=== PATIENT | female | born 1935 | race Caucasian/White ===

== ENCOUNTER 2017-05-28 12:07 | Inpatient (IN) | payer MEDICARE, OTHER ==
[~2017-05-28] VITALS: Ht 152.4 cm; Wt 55.2 kg
[2017-05-28 12:09] VITALS: BP 167/73; PULSE 88; RESP 20; TEMP 98.9; O2SAT 100
--- NOTE | 2017-05-28 12:44 | PD ---
Physical Exam Time Seen by Provider: 12:40 Narrative 82yo F seen yesterday at [facility] in [place] called this morning with positive blood cultures of gram negatives Bacillus Escherichia coli. She hasn't feeling well, with vomiting, fever 100.6. Was given IV antibx in the hospital. Was given nitrofurantoin for UTI, which she had it filled but not has not started them. Patient seen in triage. VS reviewed. Awaiting bed placement. See next providers note for final patient disposition. Data Data Last Documented VS Vital Signs Date Time Temp Pulse Resp B/P (MAP) Pulse Ox O2 Delivery O2 Flow Rate FiO2 05/28/17 12:09 98.9 88 20 167/73 (104) 100 Room Air MDM Supervised Visit with MARTY: Claudia June May 28, 2017 12:44
[2017-05-28 12:57] VITALS: BP 124/57; PULSE 87; RESP 17; O2SAT 99
[2017-05-28] MEDS ORDERED: PIPERACIL-TAZO 4.5 GM PREMIX 100 ML IV STA (13:04)
[2017-05-28] MEDS ORDERED: bp med PO (13:16)
[2017-05-28] MEDS ORDERED: LIPI10TA PO (13:16)
[2017-05-28] MEDS ORDERED: AMAR4TAB PO ×2 (13:16)
[2017-05-28] MEDS ORDERED: METF850T PO (13:16)
[2017-05-28] MEDS ORDERED: SITA1TAB2 PO (13:16)
[2017-05-28 13:53] LABS: AUTOMATED NEUTROPHIL # 3.7 TH/MM3 (1.8-7.7); BASOPHIL % 0.6 % (0.0-2.0); EOSINOPHIL % 0.7 % (0.0-4.0); HEMATOCRIT 32.5 % (35.0-46.0); HEMOGLOBIN 11.1 GM/DL (11.6-15.3); LYMPHOCYTE # 1.4 TH/MM3 (1.0-4.8); MEAN CELL VOLUME 88.1 FL (80.0-100.0); MEAN CORPUSCULAR HEMOGLOBIN 30.2 PG (27.0-34.0); MEAN CORPUSCULAR HGB CONC 34.3 % (32.0-36.0); MEAN PLATELET VOLUME 9.6 FL (7.0-11.0); MONO % 9.1 % (0.0-8.0); MONOCYTE # 0.5 TH/MM3 (0-0.9); NEUT % 65.6 % (16.0-70.0); PLATELET COUNT 194 TH/MM3 (150-450); RED BLOOD COUNT 3.69 MIL/MM3 (4.00-5.30); RED CELL DISTRIBUTION WIDTH 13.8 % (11.6-17.2); WHITE BLOOD COUNT 5.7 TH/MM3 (4.0-11.0)
--- NOTE | 2017-05-28 13:53 | RADRPT ---
EXAM DATE/TIME: 05/28/2017 13:27 [facility] COMPARISON: No previous studies available for comparison. INDICATIONS : Fever MEDICAL HISTORY : None. SURGICAL HISTORY : None. ENCOUNTER: Initial ACUITY: 1 day PAIN SCORE: 0/10 LOCATION: Bilateral chest FINDINGS: A single view of the chest demonstrates the lungs to be symmetrically aerated without evidence of mas s, infiltrate or effusion. There is minimal atelectasis and/or scarring at the lung bases. The cardi omediastinal contours are unremarkable. Osseous structures are intact. Atherosclerotic calcification s are present in the aorta. CONCLUSION: 1. No evidence to suggest pneumonia. 2. Minimal atelectasis and/or scarring at the lung bases. Jaspreet Cooper MD on May 28, 2017 at 13:49 Board Certified Radiologist. This report was verified electronically.
[2017-05-28 14:14] LABS: LACTIC ACID SEPSIS PROTOCOL 2.3 mmol/L (0.4-2.0)
[2017-05-28 14:17] LABS: ALBUMIN 2.9 GM/DL (3.4-5.0); ALKALINE PHOSPHATASE 108 U/L (45-117); ALT (GPT) 16 U/L (10-53); AST (GOT) 9 U/L (15-37); BICARBONATE 25.3 MEQ/L (21.0-32.0); BLOOD UREA NITROGEN 22 MG/DL (7-18); CALCIUM 8.5 MG/DL (8.5-10.1); CHLORIDE 95 MEQ/L (98-107); CREATININE 1.32 MG/DL (0.50-1.00); GLOMERULAR FILTRATION RATE 39 ML/MIN (>89); SODIUM (NA) 130 MEQ/L (136-145); TOTAL BILIRUBIN ADULT 0.4 MG/DL (0.2-1.0)
[2017-05-28 14:19] LABS: GLUCOSE,RANDOM 440 MG/DL (74-106)
[2017-05-28 14:29] LABS: BACTERIA, URINE RARE /hpf; BILIRUBIN, URINE NEG (NEG); BLOOD, URINE TRACE (NEG); GLUCOSE,URINE 1000 mg/dL (NEG); KETONE, URINE NEG (NEG); MUCUS URINE FEW /lpf (OCC); NITRITE,URINE NEG (NEG); RENAL EPITHELIAL CELLS <1 /hpf; URINE COLOR LIGHT-YELLOW (YELLW/STRAW); URINE LEUKOCYTE ESTERASE LARGE (NEG)
[2017-05-28] MEDS ORDERED: SODIUM CHLOR 0.9% 1000 ML INJ 1,000 ML IV ONE (14:30)
--- NOTE | 2017-05-28 15:09 | PD ---
HPI Chief Complaint: Abnormal Results Time Seen by Provider: 13:04 Travel History International Travel<30 days: No Contact w/Intl Traveler<30days: No Traveled to known affect area: No History of Present Illness HPI Patient is a 82 year old female who comes in because she was told she had a positive blood culture. She says she has not been feeling well for the past week. She is here on vacation with her daughter and she went to the hospital yesterday in [place]. She said she had vomited twice, and her daughter worried because of her diabetes, so she went into the hospital. She was found to have a urinary tract infection and she was discharged with prescriptions for Macrobid and Zofran. She was called today by someone from the hospital to inform her that her blood culture that was drawn was positive for gram-negative bacilli, Escherichia coli. She said she had a fever yesterday. She says she still feeling very weak and tired. She denies any coughing or shortness of breath. She says she has some lower abdominal pain. She says she has not had a bowel movement in a couple of days. She has not had any more vomiting since yesterday. She has not taken anything for her symptoms, and she has not started the antibiotic yet. [facility] Past Medical History Cardiovascular Problems: Yes Diabetes: Yes Past Surgical History Hysterectomy: Yes Social History Tobacco Use: No Allergies-Medications (Allergen,Severity, Reaction): Coded Allergies: No Known Allergies (Verified Allergy, Unknown, 05/28/17) Reported Meds & Prescriptions Reported Meds & Active Scripts Active Reported Lipitor (Atorvastatin Calcium) 10 Mg Tab 10 Mg PO HS Januvia (Sitagliptin Phosphate) 100 Mg Tab 100 Mg PO 1200 [bp med] 325 Mg PO DAILY Amaryl (Glimepiride) 4 Mg Tab 8 Mg PO DAILY Take with breakfast or first main meal Metformin (Metformin HCl) 850 Mg Tab 850 Mg PO DAILY With a meal Review of Systems Except as stated in HPI: all other systems reviewed are Neg General / Constitutional: Positive: Fever HENT: No: Headaches, Lightheadedness Cardiovascular: No: Chest Pain or Discomfort Respiratory: No: Cough, Shortness of Breath Gastrointestinal: Positive: Nausea, Abdominal Pain Genitourinary: No: Flank Pain Musculoskeletal: No: Myalgias, Edema Skin: No Rash, No Change in Pigmentation Neurologic: No: Weakness, Dizziness Physical Exam Narrative GENERAL: Awake and alert, in no acute distress. SKIN: Focused skin assessment warm/dry. No wounds or signs of infection. HEAD: Atraumatic. Normocephalic. EYES: Pupils equal and round. No scleral icterus. ENT: Mucous membranes pink and moist. NECK: Trachea midline. No JVD. CARDIOVASCULAR: Regular rate and rhythm. No murmur appreciated. RESPIRATORY: No accessory muscle use. Clear to auscultation. Breath sounds equal bilaterally. GASTROINTESTINAL: Abdomen soft, nondistended. Mild tenderness to palpation across the lower abdomen. No rebound or guarding. MUSCULOSKELETAL: No obvious deformities. No clubbing. No cyanosis. No edema. NEUROLOGICAL: Awake and alert. No obvious cranial nerve deficits. Motor grossly within normal limits. Normal speech. PSYCHIATRIC: Appropriate mood and affect; insight and judgment normal. Data Data Last Documented VS Vital Signs Date Time Temp Pulse Resp B/P (MAP) Pulse Ox O2 Delivery O2 Flow Rate FiO2 05/28/17 12:57 87 17 124/57 (79) 99 Room Air 05/28/17 12:09 98.9 Orders Orders Complete Blood Count With Diff (05/28/17 13:04) Comprehensive Metabolic Panel (05/28/17 13:04) Lactic Acid Sepsis Protocol (05/28/17 13:04) Urinalysis - C+S If Indicated (05/28/17 13:04) Influenzae A/B Antigen (05/28/17 13:04) Blood Culture (05/28/17 13:04) Chest, Single Ap (05/28/17 13:04) Blood Glucose (05/28/17 13:04) Ecg Monitoring (05/28/17 13:04) Iv Access Insert/Monitor (05/28/17 13:04) Oximetry (05/28/17 13:04) Oxygen Administration (05/28/17 13:04) Piperacil-Tazo 4.5 Gm Premix (Zosyn 4.5 (05/28/17 13:04) Sodium Chlor 0.9% 1000 Ml Inj (Ns 1000 M (05/28/17 14:30) Urine Culture (05/28/17 14:15) Insulin Human Regular Inj (Novolin R Inj (05/28/17 15:15) Ct Abd/Pel W Iv Contrast(Rout) (05/28/17 ) Admit Order (Ed Use Only) (05/28/17 ) Labs Laboratory Tests Test 05/28/17 13:15 05/28/17 13:35 05/28/17 14:15 White Blood Count 5.7 TH/MM3 Red Blood Count 3.69 MIL/MM3 Hemoglobin 11.1 GM/DL Hematocrit 32.5 % Mean Corpuscular Volume 88.1 FL Mean Corpuscular Hemoglobin 30.2 PG Mean Corpuscular Hemoglobin Concent 34.3 % Red Cell Distribution Width 13.8 % Platelet Count 194 TH/MM3 Mean Platelet Volume 9.6 FL Neutrophils (%) (Auto) 65.6 % Lymphocytes (%) (Auto) 24.0 % Monocytes (%) (Auto) 9.1 % Eosinophils (%) (Auto) 0.7 % Basophils (%) (Auto) 0.6 % Neutrophils # (Auto) 3.7 TH/MM3 Lymphocytes # (Auto) 1.4 TH/MM3 Monocytes # (Auto) 0.5 TH/MM3 Eosinophils # (Auto) 0.0 TH/MM3 Basophils # (Auto) 0.0 TH/MM3 CBC Comment DIFF FINAL Differential Comment Blood Urea Nitrogen 22 MG/DL Creatinine 1.32 MG/DL Random Glucose 440 MG/DL Total Protein 7.0 GM/DL Albumin 2.9 GM/DL Calcium Level 8.5 MG/DL Alkaline Phosphatase 108 U/L Aspartate Amino Transf (AST/SGOT) 9 U/L Alanine Aminotransferase (ALT/SGPT) 16 U/L Total Bilirubin 0.4 MG/DL Sodium Level 130 MEQ/L Potassium Level 3.9 MEQ/L Chloride Level 95 MEQ/L Carbon Dioxide Level 25.3 MEQ/L Anion Gap 10 MEQ/L Estimat Glomerular Filtration Rate 39 ML/MIN Lactic Acid Level 2.3 mmol/L Urine Color LIGHT-YELLOW Urine Turbidity CLEAR Urine pH 6.0 Urine Specific [place] 1.011 Urine Protein NEG mg/dL Urine Glucose (UA) 1000 mg/dL Urine Ketones NEG mg/dL Urine Occult Blood TRACE Urine Nitrite NEG Urine Bilirubin NEG Urine Urobilinogen LESS THAN 2.0 MG/DL Urine Leukocyte Esterase LARGE Urine RBC 2 /hpf Urine WBC 65 /hpf Urine Renal Epithelial Cells <1 /hpf Urine Bacteria RARE /hpf Urine Mucus FEW /lpf Microscopic Urinalysis Comment CATH-CULTURE IND MDM Medical Decision Making Medical Screen Exam Complete: Yes Emergency Medical Condition: Yes Differential Diagnosis bacteremia vs sepsis vs UTI vs intrabadominal pathology Narrative Course Patient is a 82 year old female who comes in because she had a positive blood culture. Exam shows no acute abnormalities. IV established, labs sent. Labs show a Lactic acid of 2.3. Blood sugar is 440. Repeat blood cultures sent. Given Zosyn and IVF and a dose of insulin. Urinalysis is positive for bacteria and leukocytosis. CT abd/pelvis performed. Admitted for further management. Last 24 hours Impressions Chest X-Ray 05/28/17 1304 Signed Impressions: Service Date/Time: Sunday, May 28, 2017 13:27 - CONCLUSION: 1. No evidence to suggest pneumonia. 2. Minimal atelectasis and/or scarring at the lung bases. Jaspreet Cooper MD Diagnosis Primary Impression: Positive blood culture Admitting Information Admitting Physician Requests: Admit Renay Riley MD May 28, 2017 15:09
[2017-05-28] MEDS ORDERED: INSULIN HUMAN REGULAR 1,000 UNITS/10 ML VIAL IV PUSH ONE (15:15)
[2017-05-28 16:00] VITALS: BP 136/63; PULSE 87; RESP 18; TEMP 98.7; O2SAT 99
[2017-05-28] MEDS ORDERED: ACETAMINOPHEN 325 MG TAB PO PRN (16:15)
[2017-05-28] MEDS ORDERED: BISACODYL 10 MG SUPP RECTAL PRN (16:15)
[2017-05-28] MEDS ORDERED: ONDANSETRON HCL 4 MG/2 ML VIAL IVP PRN (16:15)
[2017-05-28] MEDS ORDERED: SODIUM CHLORIDE 0.9% FLUSH 10 ML FLUSH IV FLUSH PRN (16:15)
[2017-05-28] MEDS ORDERED: SENNOSIDES 8.6 MG TAB PO PRN (16:15)
[2017-05-28] MEDS ORDERED: MAGNESIUM HYDROXIDE SUSP 30 ML CUP PO PRN (16:15)
[2017-05-28] MEDS ORDERED: LACTULOSE SYRUP 20 GM/30 ML CUP PO PRN (16:15)
[2017-05-28] MEDS ORDERED: DEXTROSE 50% IN WATER 50 ML VIAL(D50) IV PUSH PRN (16:15)
[2017-05-28] MEDS ORDERED: GLUCAGON 1 MG/ML VIAL OTHER PRN (16:15)
[2017-05-28] MEDS ORDERED: NALOXONE HCL 0.4 MG/ML AMP IV PUSH PRN (16:15)
[2017-05-28] MEDS ORDERED: IODIXANOL 320 MG/ML 10 ML VIAL (for Rad CT) IVCONTRAST ONE (16:27)
[2017-05-28] MEDS: METFORMIN HOLD POST IV CONTRAST SCH (16:30)
[2017-05-28] MEDS ORDERED: cloNIDine HCL 0.1 MG TAB PO PRN (16:30)
--- NOTE | 2017-05-28 16:34 | RADRPT ---
EXAM DATE/TIME: 05/28/2017 16:13 [facility] COMPARISON: No previous studies available for comparison. INDICATIONS : Overall ill feeling. IV CONTRAST: 50 cc Visipaque (iodixanol) IV ORAL CONTRAST: No oral contrast ingested. RADIATION DOSE: 5.04 CTDIvol (mGy) MEDICAL HISTORY : Cardiovascular disease. Diabetes SURGICAL HISTORY : Hysterectomy. ENCOUNTER: Initial ACUITY: 1 day PAIN SCALE: 6/10 LOCATION: abdomen TECHNIQUE: Volumetric scanning of the abdomen and pelvis was performed. Using automated exposure control and ad justment of the mA and/or kV according to patient size, radiation dose was kept as low as reasonably achievable to obtain optimal diagnostic quality images. DICOM format image data is available electro nically for review and comparison. FINDINGS: LOWER LUNGS: The visualized lower lungs are clear. LIVER: Homogeneous density without lesion. There is no dilation of the biliary tree. No calcified gallston es. SPLEEN: Normal size without lesion. PANCREAS: Within normal limits. KIDNEYS: There is no left kidney. The right kidney is normal in size and shape and attenuation value except fo r a small apparent cyst in the lower pole. There is no hydronephrosis. ADRENAL GLANDS: Within normal limits. VASCULAR: There is no aortic aneurysm. BOWEL/MESENTERY: No oral contrast was given limiting sensitivity. The stomach, small bowel, and colon demonstrate no a cute abnormality. There is no free intraperitoneal air or fluid. ABDOMINAL WALL: Within normal limits. RETROPERITONEUM: There is no lymphadenopathy. BLADDER: No wall thickening or mass. REPRODUCTIVE: Within normal limits. INGUINAL: There is no lymphadenopathy or hernia. MUSCULOSKELETAL: Within normal limits for patient age. CONCLUSION: 1. No normal left kidney. This may have been surgically removed and should be correlated with prior h istory. 2. The right kidney is unremarkable. 3. The bowel gas pattern and gallbladder appear unremarkable. Jaspreet Cooper MD on May 28, 2017 at 16:28 Board Certified Radiologist. This report was verified electronically.
--- NOTE | 2017-05-28 16:35 | HHI.HP ---
[facility] Primary Care Physician No Primary Care Physician Admission Diagnosis Positive blood culture Diagnoses: Travel History International Travel<30 Days: No Contact w/Intl Traveler <30 Da: No Traveled to Known Affected Are: No History of Present Illness 82-year-old female with a past medical history significant for insulin- dependent diabetes mellitus, hypertension and hyperlipidemia presents to the emergency department for evaluation of positive blood cultures. The patient was seen in [facility] yesterday for nausea vomiting, wheezing and fatigue. She was diagnosed with a urinary tract infection and given a prescription for Macrobid which she has not yet filled. She and her family were called early this afternoon from [facility] with a positive blood culture results and instructed to return to the hospital. The patient had 1/2 blood cultures positive for gram-negative rods consistent with Escherichia coli. Patient endorses fevers/chills that began yesterday and lasted throughout the night. She denies any symptoms of dysuria. Vital signs temperature 98.9, pulse 88, respirations 20, BP 167/73, pulse ox 100% on room air. Laboratory values significant for a lactic acid of 2.3 and a blood glucose of 440. No leukocytosis. UA consistent with urinary tract infection. Review of Systems Positive fever/chills Denies blurry vision, otorrhea, rhinorrhea Denies sore throat and cough No chest pain, palpitations, shortness of breath No abdominal pain Denies constipation/diarrhea/nausea/vomiting Positive fatigue No rashes Past Family Social History Past Medical History Insulin-dependent diabetes mellitus Hypertension Hyperlipidemia Past Surgical History Left nephrectomy for clear cell carcinoma at age 20 Hysterectomy Reported Medications Reported Meds & Active Scripts Active Reported Lipitor (Atorvastatin Calcium) 10 Mg Tab 10 Mg PO HS Januvia (Sitagliptin Phosphate) 100 Mg Tab 100 Mg PO 1200 [bp med] 325 Mg PO DAILY Amaryl (Glimepiride) 4 Mg Tab 8 Mg PO DAILY Take with breakfast or first main meal Metformin (Metformin HCl) 850 Mg Tab 850 Mg PO DAILY With a meal Allergies: Coded Allergies: No Known Allergies (Verified Allergy, Unknown, 05/28/17) Family History Father with diabetes mellitus. Mother with hypertension. Social History Denies alcohol, tobacco and illicit drugs Physical Exam Vital Signs Vital Signs Date Time Temp Pulse Resp B/P (MAP) Pulse Ox O2 Delivery O2 Flow Rate FiO2 05/28/17 12:57 87 17 124/57 (79) 99 Room Air 05/28/17 12:09 98.9 88 20 167/73 (104) 100 Room Air Physical Exam GENERAL: Thin, female lying in bed SKIN: No rashes, ecchymoses or lesions. Cool and dry. HEAD: Atraumatic. Normocephalic. No temporal or scalp tenderness. EYES: Pupils equal round and reactive. Extraocular motions intact. No scleral icterus. No injection or drainage. ENT: Nose without bleeding, purulent drainage or septal hematoma. Throat without erythema, tonsillar hypertrophy or exudate. Uvula midline. Airway patent. NECK: Trachea midline. No JVD or lymphadenopathy. Supple, nontender, no meningeal signs. CARDIOVASCULAR: Regular rate and rhythm without murmurs, gallops, or rubs. RESPIRATORY: Clear to auscultation. Breath sounds equal bilaterally. No wheezes , rales, or rhonchi. GASTROINTESTINAL: Abdomen soft, diffusely tender in the pelvis, nondistended. No hepato-splenomegaly, or palpable masses. No guarding. MUSCULOSKELETAL: Extremities without clubbing, cyanosis, or edema. No joint tenderness, effusion, or edema noted. No calf tenderness. NEUROLOGICAL: Awake and alert. Cranial nerves II through XII intact. Motor and sensory grossly within normal limits. Normal speech. Laboratory Laboratory Tests Test 05/28/17 13:15 05/28/17 13:35 05/28/17 14:15 White Blood Count 5.7 Red Blood Count 3.69 Hemoglobin 11.1 Hematocrit 32.5 Mean Corpuscular Volume 88.1 Mean Corpuscular Hemoglobin 30.2 Mean Corpuscular Hemoglobin Concent 34.3 Red Cell Distribution Width 13.8 Platelet Count 194 Mean Platelet Volume 9.6 Neutrophils (%) (Auto) 65.6 Lymphocytes (%) (Auto) 24.0 Monocytes (%) (Auto) 9.1 Eosinophils (%) (Auto) 0.7 Basophils (%) (Auto) 0.6 Neutrophils # (Auto) 3.7 Lymphocytes # (Auto) 1.4 Monocytes # (Auto) 0.5 Eosinophils # (Auto) 0.0 Basophils # (Auto) 0.0 CBC Comment DIFF FINAL Differential Comment Blood Urea Nitrogen 22 Creatinine 1.32 Random Glucose 440 Total Protein 7.0 Albumin 2.9 Calcium Level 8.5 Alkaline Phosphatase 108 Aspartate Amino Transf (AST/SGOT) 9 Alanine Aminotransferase (ALT/SGPT) 16 Total Bilirubin 0.4 Sodium Level 130 Potassium Level 3.9 Chloride Level 95 Carbon Dioxide Level 25.3 Anion Gap 10 Estimat Glomerular Filtration Rate 39 Lactic Acid Level 2.3 Urine Color LIGHT-YELLOW Urine Turbidity CLEAR Urine pH 6.0 Urine Specific [place] 1.011 Urine Protein NEG Urine Glucose (UA) 1000 Urine Ketones NEG Urine Occult Blood TRACE Urine Nitrite NEG Urine Bilirubin NEG Urine Urobilinogen LESS THAN 2.0 Urine Leukocyte Esterase LARGE Urine RBC 2 Urine WBC 65 Urine Renal Epithelial Cells <1 Urine Bacteria RARE Urine Mucus FEW Microscopic Urinalysis Comment CATH-CULTURE IND Date/Time Source Procedure Growth Status 05/28/17 13:25 Blood Peripheral Aerobic Blood Culture Pending Received 05/28/17 13:25 Blood Peripheral Anaerobic Blood Culture Pending Received 05/28/17 13:30 Nasal Washing Influenza Types A,B Antigen (DRAREN) - Final NEGATIVE FOR FLU A AND B ANTIGEN.... Complete 05/28/17 14:15 Urine Clean Catch Urine Culture Pending Received Result Diagram: 05/28/17 1315 05/28/17 1315 Caprini VTE Risk Assessment Caprini VTE Risk Assessment: Mod/High Risk (score >= 2) Caprini Risk Assessment Model Point Value = 1 Point Value = 2 Point Value = 3 Point Value = 5 Age 41-60 Minor surgery BMI > 25 kg/m2 Swollen legs Varicose veins or History of unexplained or recurrent spontaneous Oral contraceptives or hormone replacement Sepsis (< 1 month) Serious lung disease, including pneumonia (< 1 month) Abnormal pulmonary function Acute myocardial infarction Congestive heart failure (< 1 month) History of inflammatory bowel disease Medical patient at bed rest Age 61-74 Arthroscopic surgery Major open surgery (> 45 min) Laparoscopic surgery (> 45 min) Malignancy Confined to bed (> 72 hours) Immobilizing plaster cast Central venous access Age >= 75 History of VTE Family history of VTE Factor V Leiden Prothrombin [id number] Lupus anticoagulant Anticardiolipin antibodies Elevated serum homocysteine Heparin-induced thrombocytopenia Other congenital or acquired thrombophilia Stroke (< 1 month) Elective arthroplasty Hip, pelvis, or leg fracture Acute spinal cord injury (< 1 month) Prophylaxis Regimen Total Risk Factor Score Risk Level Prophylaxis Regimen 0-1 Low Early ambulation 2 Moderate Order ONE of the following: *Sequential Compression Device (SCD) *Heparin 5000 units SQ BID 3-4 Higher Order ONE of the following medications: *Heparin 5000 units SQ TID *Enoxaparin/Lovenox 40 mg SQ daily (WT < 150 kg, CrCl > 30 mL/min) *Enoxaparin/Lovenox 30 mg SQ daily (WT < 150 kg, CrCl > 10-29 mL/min) *Enoxaparin/Lovenox 30 mg SQ BID (WT < 150 kg, CrCl > 30 mL/min) AND/OR *Sequential Compression Device (SCD) 5 or more Highest Order ONE of the following medications: *Heparin 5000 units SQ TID (Preferred with Epidurals) *Enoxaparin/Lovenox 40 mg SQ daily (WT < 150 kg, CrCl > 30 mL/min) *Enoxaparin/Lovenox 30 mg SQ daily (WT < 150 kg, CrCl > 10-29 mL/min) *Enoxaparin/Lovenox 30 mg SQ BID (WT < 150 kg, CrCl > 30 mL/min) AND *Sequential Compression Device (SCD) Assessment and Plan Assessment and Plan Assessment/plan: 1. Positive blood cultures 1/2 cultures positive for gram-negative rods, presumptive Escherichia coli performed at [facility] on 05/27/17 Lactic acid elevated at 2.3 Repeat blood cultures pending Zosyn IV fluids Repeat lactic acid pending If repeat blood cultures positive, will consult infectious disease 2. UTI UA showed rare bacteria, 65 WBCs, large leukocyte esterase Antibiotics as above Urine culture pending 3. Diabetes mellitus/hyperglycemia Per patient report, she takes her Lantus prn Blood glucose 440 in ED, s/p IV insulin SSI Monitor blood glucose 4. Renal insufficiency Creatinine 1.32, no baseline for comparison May be chronic as patient status post left-sided nephrectomy Monitor renal function 5. Hypertension Patient cannot the name of her home blood pressure medication Clonidine when necessary 6. Hyperlipidemia Continue home statin FEN Diabetic diet NS at 70 cc/hr Electrolytes: monitor and replete prn Heparin Physician Certification 2 Midnight Certification Type: Admission for Inpatient Services Order for Inpatient Services The services are ordered in accordance with Medicare regulations or non- Medicare payer requirements, as applicable. In the case of services not specified as inpatient-only, they are appropriately provided as inpatient services in accordance with the 2-midnight benchmark. Estimated LOS (days): 2 2 days is the estimated time the patient will need to remain in the hospital, assuming treatment plan goals are met and no additional complications. Post-Hospital Plan: Home Lauren Stephens MD May 28, 2017 16:35
[2017-05-28] MEDS: INSULIN ASPART SUPPLEMENTAL SCALE SQ SCH ×2 (16:38→23:26)
[2017-05-28] MEDS: HEPARIN SODIUM - SQ 10,000 UNITS/ML VIAL SQ SCH (17:09)
[2017-05-28] MEDS: SODIUM CHLOR 0.9% 1000 ML INJ 1,000 ML IV SCH (17:09)
[2017-05-28 21:30] VITALS: BP 130/59; PULSE 83; RESP 17; TEMP 98.4; O2SAT 99
[2017-05-28] MEDS: PIPERACIL-TAZO 3.375 GM PREMIX 50 ML IV SCH (23:26)
[2017-05-28] MEDS: DOCUSATE SODIUM 50 MG/SENNA 8.6 MG TAB PO SCH (23:26)
[2017-05-28] MEDS: ATORVASTATIN 10 MG TAB PO SCH (23:26)
[2017-05-28] MEDS: SODIUM CHLORIDE 0.9% FLUSH 10 ML FLUSH IV FLUSH SCH (23:27)
[2017-05-29 00:15] VITALS: BP 126/62; PULSE 88; RESP 17; TEMP 97.9; O2SAT 99
[2017-05-29] MEDS: PIPERACIL-TAZO 3.375 GM PREMIX 50 ML IV SCH ×4 (02:53→20:58)
[2017-05-29] MEDS: SODIUM CHLOR 0.9% 1000 ML INJ 1,000 ML IV SCH ×2 (02:55→20:59)
[2017-05-29 04:00] VITALS: BP 122/60; PULSE 81; RESP 16; TEMP 98.2; O2SAT 99
[2017-05-29 04:51] LABS: AUTOMATED NEUTROPHIL # 3.1 TH/MM3 (1.8-7.7); BASOPHIL # 0.1 TH/MM3 (0-0.2); BASOPHIL % 1.2 % (0.0-2.0); EOSINOPHIL # 0.2 TH/MM3 (0-0.4); EOSINOPHIL % 4.2 % (0.0-4.0); HEMATOCRIT 28.3 % (35.0-46.0); HEMOGLOBIN 9.6 GM/DL (11.6-15.3); LYMPH % 27.6 % (9.0-44.0); LYMPHOCYTE # 1.5 TH/MM3 (1.0-4.8); MEAN CELL VOLUME 86.9 FL (80.0-100.0); MEAN CORPUSCULAR HEMOGLOBIN 29.4 PG (27.0-34.0); MEAN CORPUSCULAR HGB CONC 33.8 % (32.0-36.0); MONO % 10.6 % (0.0-8.0); MONOCYTE # 0.6 TH/MM3 (0-0.9); NEUT % 56.4 % (16.0-70.0); PLATELET COUNT 175 TH/MM3 (150-450); RED BLOOD COUNT 3.26 MIL/MM3 (4.00-5.30); RED CELL DISTRIBUTION WIDTH 13.8 % (11.6-17.2); WHITE BLOOD COUNT 5.5 TH/MM3 (4.0-11.0)
[2017-05-29] MEDS: HEPARIN SODIUM - SQ 10,000 UNITS/ML VIAL SQ SCH ×2 (04:56→16:56)
[2017-05-29 05:04] LABS: CREATININE 1.08 MG/DL (0.50-1.00)
[2017-05-29] MEDS: SODIUM CHLORIDE 0.9% FLUSH 10 ML FLUSH IV FLUSH SCH ×2 (07:52→20:59)
[2017-05-29 07:56] VITALS: BP 123/58; PULSE 76; RESP 18; TEMP 98.2; O2SAT 98
[2017-05-29] MEDS: INSULIN ASPART SUPPLEMENTAL SCALE SQ SCH ×4 (09:36→21:00)
[2017-05-29] MEDS: INSULIN DETEMIR 100 UNITS/ML VIAL SQ SCH ×2 (09:36→23:03)
[2017-05-29] MEDS: DOCUSATE SODIUM 50 MG/SENNA 8.6 MG TAB PO SCH ×2 (09:36→20:59)
[2017-05-29 11:39] VITALS: BP 141/62; PULSE 78; RESP 18; TEMP 98.2; O2SAT 100
[2017-05-29 11:53] LABS: HEMOGLOBIN A1C 8.6 % (4.3-6.0)
--- NOTE | 2017-05-29 12:28 | PD.ID.CON ---
History of Present Illness Service ID Consult Requested By Dr Prince Reason for Consult gram negative bacteremia Primary Care Physician No Primary Care Physician Diagnoses: History of Present Illness chart reviewed Notes from [facility] estuardo Pt was admitted 2 days ago to [facility] with fever weakness, nausea, vomiting She has abnormal UA with 46 WBC and bacteriuria Her blood clx were positive for E.coli. KPC not detected Was given IV antibx in the hospital. Was given nitrofurantoin for UTI, which she had it filled but not has not started them. She has underlying DM and reports frequien UTIs She already had a UTI since the beginning of the year, that's her 2nd one She was given IV abx to treat it in [facility] where she resides and reports some local reaction to infusion. She can not recalll the name of the medication She is feeling much better now Review of Systems Except as stated in HPI: all other systems reviewed are Neg Past Family Social History Allergies: Coded Allergies: No Known Allergies (Verified Allergy, Unknown, 05/28/17) Past Medical History Insulin-dependent diabetes mellitus Hypertension Hyperlipidemia Past Surgical History Left nephrectomy for clear cell carcinoma at age 20 Hysterectomy Active Ordered Medications Medications where reviewed in EMR Antibiotics Include: zosyn Family History Father with diabetes mellitus. Mother with hypertension. Social History Denies alcohol, tobacco and illicit drugs Physical Exam Vital Signs Vital Signs Date Time Temp Pulse Resp B/P (MAP) Pulse Ox O2 Delivery O2 Flow Rate FiO2 05/29/17 11:39 98.2 78 18 141/62 (88) 100 05/29/17 07:56 98.2 76 18 123/58 (79) 98 05/29/17 04:00 98.2 81 16 122/60 (80) 99 05/29/17 00:15 97.9 88 17 126/62 (83) 99 05/28/17 21:30 98.4 83 17 130/59 (82) 99 05/28/17 17:15 05/28/17 16:00 98.7 87 18 136/63 (87) 99 05/28/17 12:57 87 17 124/57 (79) 99 Room Air Physical Exam CONSTITUTIONAL/GENERAL: This is an adequately nourished patient, in no apparent distress. TUBES/LINES/DRAINS: SKIN: No jaundice, rashes, or lesions. Skin temperature appropriate. Not diaphoretic. HEAD: Atraumatic. Normocephalic. EYES: Pupils equal and round and reactive. Extraocular motions intact. No scleral icterus. No injection or drainage. Fundi not examined. ENT: Hearing grossly normal. Nose without bleeding or purulent drainage. Throat without visible erythema, exudates, masses, or lesions. NECK: Trachea midline. Supple, nontender. No palpable thyroid enlargement or nodularity. CARDIOVASCULAR: Regular rate and rhythm without murmurs, gallops, or rubs. No JVD. Peripheral pulses symmetric. RESPIRATORY/CHEST: Symmetric, unlabored respirations. Clear to auscultation. Breath sounds equal bilaterally. No wheezes, rales, or rhonchi. GASTROINTESTINAL: Abdomen soft, non-tender, nondistended. No hepato-splenomegaly , or palpable masses. No guarding. Bowel sounds present. GENITOURINARY: Without palpable bladder distension. MUSCULOSKELETAL: Extremities without clubbing, cyanosis, or edema. No joint tenderness or effusion noted. No calf tenderness. No mottling or clubbing. LYMPHATICS: No palpable cervical or supraclavicular adenopathy. NEUROLOGICAL: Awake and alert. Motor and sensory grossly within normal limits. Follows commands. Cognitively sharp. Moves all extremities. PSYCHIATRIC: No obvious anxiety/depression. no apparent hallucinations or other psychotic thought process. Laboratory Laboratory Tests Test 05/28/17 13:15 05/28/17 13:35 05/28/17 14:15 05/28/17 21:50 White Blood Count 5.7 Red Blood Count 3.69 Hemoglobin 11.1 Hematocrit 32.5 Mean Corpuscular Volume 88.1 Mean Corpuscular Hemoglobin 30.2 Mean Corpuscular Hemoglobin Concent 34.3 Red Cell Distribution Width 13.8 Platelet Count 194 Mean Platelet Volume 9.6 Neutrophils (%) (Auto) 65.6 Lymphocytes (%) (Auto) 24.0 Monocytes (%) (Auto) 9.1 Eosinophils (%) (Auto) 0.7 Basophils (%) (Auto) 0.6 Neutrophils # (Auto) 3.7 Lymphocytes # (Auto) 1.4 Monocytes # (Auto) 0.5 Eosinophils # (Auto) 0.0 Basophils # (Auto) 0.0 CBC Comment DIFF FINAL Differential Comment Blood Urea Nitrogen 22 Creatinine 1.32 Random Glucose 440 Total Protein 7.0 Albumin 2.9 Calcium Level 8.5 Alkaline Phosphatase 108 Aspartate Amino Transf (AST/SGOT) 9 Alanine Aminotransferase (ALT/SGPT) 16 Total Bilirubin 0.4 Sodium Level 130 Potassium Level 3.9 Chloride Level 95 Carbon Dioxide Level 25.3 Anion Gap 10 Estimat Glomerular Filtration Rate 39 Lactic Acid Level 2.3 2.1 Urine Color LIGHT-YELLOW Urine Turbidity CLEAR Urine pH 6.0 Urine Specific [place] 1.011 Urine Protein NEG Urine Glucose (UA) 1000 Urine Ketones NEG Urine Occult Blood TRACE Urine Nitrite NEG Urine Bilirubin NEG Urine Urobilinogen LESS THAN 2.0 Urine Leukocyte Esterase LARGE Urine RBC 2 Urine WBC 65 Urine Renal Epithelial Cells <1 Urine Bacteria RARE Urine Mucus FEW Microscopic Urinalysis Comment CATH-CULTURE IND Test 05/29/17 04:39 White Blood Count 5.5 Red Blood Count 3.26 Hemoglobin 9.6 Hematocrit 28.3 Mean Corpuscular Volume 86.9 Mean Corpuscular Hemoglobin 29.4 Mean Corpuscular Hemoglobin Concent 33.8 Red Cell Distribution Width 13.8 Platelet Count 175 Mean Platelet Volume 9.0 Neutrophils (%) (Auto) 56.4 Lymphocytes (%) (Auto) 27.6 Monocytes (%) (Auto) 10.6 Eosinophils (%) (Auto) 4.2 Basophils (%) (Auto) 1.2 Neutrophils # (Auto) 3.1 Lymphocytes # (Auto) 1.5 Monocytes # (Auto) 0.6 Eosinophils # (Auto) 0.2 Basophils # (Auto) 0.1 CBC Comment DIFF FINAL Differential Comment Blood Urea Nitrogen 17 Creatinine 1.08 Random Glucose 172 Calcium Level 8.0 Sodium Level 140 Potassium Level 3.8 Chloride Level 107 Carbon Dioxide Level 26.0 Anion Gap 7 Estimat Glomerular Filtration Rate 49 Date/Time Source Procedure Growth Status 05/28/17 13:25 Blood Peripheral Aerobic Blood Culture - Preliminary NO GROWTH IN 1 DAY Resulted 05/28/17 13:25 Blood Peripheral Anaerobic Blood Culture - Preliminary NO GROWTH IN 1 DAY Resulted 05/28/17 13:30 Nasal Washing Influenza Types A,B Antigen (DARREN) - Final NEGATIVE FOR FLU A AND B ANTIGEN.... Complete 05/28/17 14:15 Urine Clean Catch Urine Culture Pending Received Result Diagram: 05/29/17 0439 05/29/17 0439 Imaging Last Impressions Chest X-Ray 05/28/17 1304 Signed Impressions: Service Date/Time: Sunday, May 28, 2017 13:27 - CONCLUSION: 1. No evidence to suggest pneumonia. 2. Minimal atelectasis and/or scarring at the lung bases. Jaspreet Cooper MD Abdomen/Pelvis CT 05/28/17 0000 Signed Impressions: Service Date/Time: Sunday, May 28, 2017 16:13 - CONCLUSION: 1. No normal left kidney. This may have been surgically removed and should be correlated with prior history. 2. The right kidney is unremarkable. 3. The bowel gas pattern and gallbladder appear unremarkable. Jaspreet Cooper MD Assessment and Plan Assessment and Plan E.coli sepsis 2/2 pylonephritis in a single kidney - reports clinical improvement Reports local reaction to unspecified abx cont zosyn fu blood clx isolate untill final from [facility] our urine, blood clx untill final anticipate 14 days of abx hopefully will d/c on oral abx pending final sensitivity Gabriela Maddox MD May 29, 2017 12:28
[2017-05-29 16:13] VITALS: BP 136/58; PULSE 84; RESP 18; TEMP 98.1; O2SAT 100
[2017-05-29] MEDS: METFORMIN HOLD POST IV CONTRAST SCH (16:30)
--- NOTE | 2017-05-29 20:26 | HHI.PR ---
Subjective Remarks Patient seen this morning around 11 AM. Says she is feeling all right. Denies any chest pain or shortness of breath. Denies any nausea or vomiting. Denies any dysuria. discussed condition with nurse, family bedside. I also called [facility] micro-lab to discuss culture results. Objective Vital Signs Date Time Temp Pulse Resp B/P (MAP) Pulse Ox O2 Delivery O2 Flow Rate FiO2 05/29/17 16:13 98.1 84 18 136/58 (84) 100 05/29/17 11:39 98.2 78 18 141/62 (88) 100 05/29/17 07:56 98.2 76 18 123/58 (79) 98 05/29/17 04:00 98.2 81 16 122/60 (80) 99 05/29/17 00:15 97.9 88 17 126/62 (83) 99 05/28/17 21:30 98.4 83 17 130/59 (82) 99 I/O 05/28/17 05/28/17 05/28/17 05/29/17 05/29/17 05/29/17 07:00 15:00 23:00 07:00 15:00 23:00 Intake Total 100 ml 1100 ml 750 ml 600 ml Balance 100 ml 1100 ml 750 ml 600 ml Intake Oral 100 ml 750 ml 600 ml IV Total 100 ml 1000 ml # Voids 0 2 3 # Bowel Movements 0 0 Result Diagram: 05/29/17 0439 05/29/17 0439 Objective Remarks GENERAL: patient sitting up in chair at bedside. Appears comfortable. SKIN: Warm and dry. HEAD: Normocephalic. EYES: No scleral icterus. No injection or drainage. NECK: Supple, trachea midline. No JVD. CARDIOVASCULAR: Regular rate and rhythm without murmurs, gallops, or rubs. RESPIRATORY: Breath sounds equal bilaterally. No accessory muscle use. GASTROINTESTINAL: Abdomen soft, non-tender, nondistended. MUSCULOSKELETAL: No cyanosis, or edema. BACK: Nontender without obvious deformity. No CVA tenderness. A/P Assessment and Plan //Positive blood cultures 1/2 cultures positive for gram-negative rods, presumptive Escherichia coli performed at [facility] on 05/27/17 Lactic acid elevated at 2.3 Repeat blood cultures pending Zosyn IV fluids Repeat lactic acid pending If repeat blood cultures positive, will consult infectious disease = 05/29. I called [facility] in [place]. Sensitivity results from blood culture will be available after 11 AM tomorrow. Will call back tomorrow. [facility] number is [phone]. Micro-lab is extension [phone]. Infectious disease following. Appreciate assistance. //UTI UA showed rare bacteria, 65 WBCs, large leukocyte esterase Antibiotics as above Urine culture pending = Urine culture with no growth. Follow-up urine cultures from previous hospitalization. // Diabetes mellitus/hyperglycemia Per patient report, she takes her Lantus prn Blood glucose 440 in ED, s/p IV insulin SSI Monitor blood glucose = Patient had some hypoglycemia in the 50s this morning, as well as hyperglycemia this afternoon in the 300s. A1c 8.6. Will add Levemir for basal controlled. Continue insulin sliding scale. // Renal insufficiency Creatinine 1.32, no baseline for comparison May be chronic as patient status post left-sided nephrectomy Monitor renal function = Creatinine 1.08. Improved. Continue to monitor. //Hypertension Patient cannot the name of her home blood pressure medication Clonidine when necessary = Blood pressure continues acceptable. Continue to monitor. // Hyperlipidemia Continue home statin Discharge Planning blood culture sensitivity results will be available from [facility] tomorrow. Dhaval Prince MD May 29, 2017 20:26
[2017-05-29 20:30] VITALS: BP 160/59; PULSE 82; RESP 17; TEMP 97.7; O2SAT 100
[2017-05-29] MEDS: ATORVASTATIN 10 MG TAB PO SCH (20:58)
[2017-05-30] VITALS: BP 149/63; PULSE 83; RESP 17; TEMP 99; O2SAT 100
[2017-05-30] MEDS: PIPERACIL-TAZO 3.375 GM PREMIX 50 ML IV SCH ×3 (01:50→12:49)
[2017-05-30 04:08] VITALS: BP 159/70; PULSE 76; RESP 17; TEMP 98.5; O2SAT 99
[2017-05-30] MEDS: HEPARIN SODIUM - SQ 10,000 UNITS/ML VIAL SQ SCH (05:00)
[2017-05-30] MEDS: INSULIN ASPART SUPPLEMENTAL SCALE SQ SCH ×2 (07:47→13:47)
[2017-05-30] MEDS: DOCUSATE SODIUM 50 MG/SENNA 8.6 MG TAB PO SCH (08:12)
[2017-05-30] MEDS: SODIUM CHLORIDE 0.9% FLUSH 10 ML FLUSH IV FLUSH SCH (08:12)
[2017-05-30] MEDS: INSULIN DETEMIR 100 UNITS/ML VIAL SQ SCH (08:13)
[2017-05-30 08:17] VITALS: BP 154/67; PULSE 74; RESP 18; TEMP 98.2; O2SAT 98
[2017-05-30 11:38] VITALS: BP 134/65; PULSE 78; RESP 18; TEMP 98; O2SAT 100
[2017-05-30] MEDS: SODIUM CHLOR 0.9% 1000 ML INJ 1,000 ML IV SCH (12:49)
--- NOTE | 2017-05-30 13:05 | HHI.PR ---
Subjective Remarks Patient says she is feeling fine. Denies any chest pain or shortness of breath. Denies any dysuria. Objective Vital Signs Date Time Temp Pulse Resp B/P (MAP) Pulse Ox O2 Delivery O2 Flow Rate FiO2 05/30/17 11:38 98.0 78 18 134/65 (88) 100 05/30/17 08:17 98.2 74 18 154/67 (96) 98 05/30/17 04:08 98.5 76 17 159/70 (99) 99 05/30/17 00:00 99.0 83 17 149/63 (91) 100 05/29/17 20:30 97.7 82 17 160/59 (92) 100 05/29/17 16:13 98.1 84 18 136/58 (84) 100 I/O 05/29/17 05/29/17 05/29/17 05/30/17 05/30/17 05/30/17 07:00 15:00 23:00 07:00 15:00 23:00 Intake Total 750 ml 600 ml 1050 ml 764 ml 50 ml Balance 750 ml 600 ml 1050 ml 764 ml 50 ml Intake Oral 750 ml 600 ml 240 ml IV Total 1050 ml 524 ml 50 ml # Voids 2 3 3 # Bowel Movements 0 Result Diagram: 05/29/17 0439 05/29/17 0439 Objective Remarks GENERAL: patient sitting up in bed appears comfortable. SKIN: Warm and dry. HEAD: Normocephalic. EYES: No scleral icterus. No injection or drainage. NECK: Supple, trachea midline. No JVD. CARDIOVASCULAR: Regular rate and rhythm without murmurs, gallops, or rubs. RESPIRATORY: Breath sounds equal bilaterally. No accessory muscle use. GASTROINTESTINAL: Abdomen soft, non-tender, nondistended. MUSCULOSKELETAL: No cyanosis, or edema. BACK: Nontender without obvious deformity. No CVA tenderness. A/P Assessment and Plan //Positive blood cultures 1/2 cultures positive for gram-negative rods, presumptive Escherichia coli performed at [facility] on 05/27/17 Lactic acid elevated at 2.3 Repeat blood cultures pending Zosyn IV fluids Repeat lactic acid pending If repeat blood cultures positive, will consult infectious disease = 05/29. I called [facility] in [place]. Sensitivity results from blood culture will be available after 11 AM tomorrow. Will call back tomorrow. [facility] number is [phone]. Micro-lab is extension [phone]. Infectious disease following. Appreciate assistance. = I discussed again with microbiology, have records faxed over. Both urine and blood culture from 05/27 with Escherichia coli resistant to only Cipro, otherwise pansensitive, quitting sensitive to ceftriaxone. Her sitting, case management. We'll order home health for antibiotics. Discussed with infectious disease, who will come to evaluate //UTI UA showed rare bacteria, 65 WBCs, large leukocyte esterase Antibiotics as above Urine culture pending = Urine culture with no growth. Follow-up urine cultures from previous hospitalization. = Urine culture from 05/27 with Escherichia coli resistant only to Cipro. Continue antibiotics. // Diabetes mellitus/hyperglycemia Per patient report, she takes her Lantus prn Blood glucose 440 in ED, s/p IV insulin SSI Monitor blood glucose = Patient had some hypoglycemia in the 50s this morning, as well as hyperglycemia this afternoon in the 300s. A1c 8.6. Will add Levemir for basal controlled. Continue insulin sliding scale. = Dose is acceptable. Consult wellness educator. // Renal insufficiency Creatinine 1.32, no baseline for comparison May be chronic as patient status post left-sided nephrectomy Monitor renal function = Creatinine 1.08. Improved. Continue to monitor. //Hypertension Patient cannot the name of her home blood pressure medication Clonidine when necessary = Blood pressure continues acceptable. Continue to monitor. // Hyperlipidemia Continue home statin Discharge Planning blood culture sensitivity results will be available from [facility] tomorrow. Will likely need home health for IV antibiotics. = Pending ID clearance. May need PICC line. Dhaval Prince MD May 30, 2017 13:05
[2017-05-30 14:38] LABS: CREATININE 1.03 MG/DL (0.50-1.00)
[2017-05-30] MEDS ORDERED: SULF1TAB23 PO (14:50)
--- NOTE | 2017-05-30 15:02 | HHI.DS ---
Discharge Summary Admission Date May 28, 2017 at 15:25 Discharge Date: May 30, 2017 Admitting Diagnosis Positive blood culture (1) UTI (urinary tract infection) ICD Code: N39.0 - Urinary tract infection, site not specified (2) Positive blood culture ICD Code: R78.81 - Bacteremia Status: Acute Procedures No invasive procedures. Brief History - From Admission 82-year-old female with a past medical history significant for insulin- dependent diabetes mellitus, hypertension and hyperlipidemia presents to the emergency department for evaluation of positive blood cultures. The patient was seen in [facility] yesterday for nausea vomiting, wheezing and fatigue. She was diagnosed with a urinary tract infection and given a prescription for Macrobid which she has not yet filled. She and her family were called early this afternoon from [facility] with a positive blood culture results and instructed to return to the hospital. The patient had 1/2 blood cultures positive for gram-negative rods consistent with Escherichia coli. Patient endorses fevers/chills that began yesterday and lasted throughout the night. She denies any symptoms of dysuria. Vital signs temperature 98.9, pulse 88, respirations 20, BP 167/73, pulse ox 100% on room air. Laboratory values significant for a lactic acid of 2.3 and a blood glucose of 440. No leukocytosis. UA consistent with urinary tract infection. CBC/BMP: 05/29/17 0439 05/30/17 1345 Significant Findings Laboratory Tests Test 05/28/17 13:15 05/28/17 13:35 05/28/17 14:15 05/28/17 21:50 Red Blood Count 3.69 MIL/MM3 (4.00-5.30) Hemoglobin 11.1 GM/DL (11.6-15.3) Hematocrit 32.5 % (35.0-46.0) Monocytes (%) (Auto) 9.1 % (0.0-8.0) Blood Urea Nitrogen 22 MG/DL (7-18) Creatinine 1.32 MG/DL (0.50-1.00) Random Glucose 440 MG/DL (74-106) Albumin 2.9 GM/DL (3.4-5.0) Aspartate Amino Transf (AST/SGOT) 9 U/L (15-37) Sodium Level 130 MEQ/L (136-145) Chloride Level 95 MEQ/L (98-107) Estimat Glomerular Filtration Rate 39 ML/MIN (>89) Lactic Acid Level 2.3 mmol/L (0.4-2.0) 2.1 mmol/L (0.4-2.0) Urine Glucose (UA) 1000 mg/dL (NEG) Urine Occult Blood TRACE (NEG) Urine Leukocyte Esterase LARGE (NEG) Urine WBC 65 /hpf (0-5) Urine Bacteria RARE /hpf (NONE) Urine Mucus FEW /lpf (OCC) Test 05/29/17 04:39 05/30/17 13:45 Red Blood Count 3.26 MIL/MM3 (4.00-5.30) Hemoglobin 9.6 GM/DL (11.6-15.3) Hematocrit 28.3 % (35.0-46.0) Monocytes (%) (Auto) 10.6 % (0.0-8.0) Eosinophils (%) (Auto) 4.2 % (0.0-4.0) Creatinine 1.08 MG/DL (0.50-1.00) 1.03 MG/DL (0.50-1.00) Random Glucose 172 MG/DL (74-106) Calcium Level 8.0 MG/DL (8.5-10.1) Estimat Glomerular Filtration Rate 49 ML/MIN (>89) 51 ML/MIN (>89) Hemoglobin A1c 8.6 % (4.3-6.0) Imaging Last Impressions Chest X-Ray 05/28/17 1304 Signed Impressions: Service Date/Time: Sunday, May 28, 2017 13:27 - CONCLUSION: 1. No evidence to suggest pneumonia. 2. Minimal atelectasis and/or scarring at the lung bases. Jaspreet Cooper MD Abdomen/Pelvis CT 05/28/17 0000 Signed Impressions: Service Date/Time: Sunday, May 28, 2017 16:13 - CONCLUSION: 1. No normal left kidney. This may have been surgically removed and should be correlated with prior history. 2. The right kidney is unremarkable. 3. The bowel gas pattern and gallbladder appear unremarkable. Jaspreet Cooper MD Hospital Course Patient presented with acute kidney injury with creatinine 1.3 which resolved with IV fluids. She was treated with broad-spectrum IV antibiotics. Blood culture from 05/27 at [facility] returned positive for Escherichia coli resistant only to Cipro, with dental bacteria on urine culture. Infectious disease was consulted. Patient was discharged on Bactrim to complete 2 week course. She will need monitoring of kidney function while on this antibiotic. Blood sugars were found to be in the 400s on admission. A1c 8.6 showing intermediate control at home. This was managed with Levemir, NovoLog sliding scale while inpatient. She'll be discharged on same home medications, strict diabetic diet. Close follow-up with primary care recommended. For problem-based summary from most recent progress note, please see below. //Positive blood cultures 1/2 cultures positive for gram-negative rods, presumptive Escherichia coli performed at [facility] on 05/27/17 Lactic acid elevated at 2.3 Repeat blood cultures pending Zosyn IV fluids Repeat lactic acid pending If repeat blood cultures positive, will consult infectious disease = 05/29. I called [facility] in [place]. Sensitivity results from blood culture will be available after 11 AM tomorrow. Will call back tomorrow. [facility] number is [phone]. Micro-lab is extension [phone]. Infectious disease following. Appreciate assistance. = I discussed again with microbiology, have records faxed over. Both urine and blood culture from 05/27 with Escherichia coli resistant to only Cipro, otherwise pansensitive, quitting sensitive to ceftriaxone. Her sitting, case management. We'll order home health for antibiotics. Discussed with infectious disease, who will come to evaluate //UTI UA showed rare bacteria, 65 WBCs, large leukocyte esterase Antibiotics as above Urine culture pending = Urine culture with no growth. Follow-up urine cultures from previous hospitalization. = Urine culture from 05/27 with Escherichia coli resistant only to Cipro. Continue antibiotics. // Diabetes mellitus/hyperglycemia Per patient report, she takes her Lantus prn Blood glucose 440 in ED, s/p IV insulin SSI Monitor blood glucose = Patient had some hypoglycemia in the 50s this morning, as well as hyperglycemia this afternoon in the 300s. A1c 8.6. Will add Levemir for basal controlled. Continue insulin sliding scale. = Dose is acceptable. Consult staff development educator. // Renal insufficiency Creatinine 1.32, no baseline for comparison May be chronic as patient status post left-sided nephrectomy Monitor renal function = Creatinine 1.08. Improved. Continue to monitor. //Hypertension Patient cannot the name of her home blood pressure medication Clonidine when necessary = Blood pressure continues acceptable. Continue to monitor. // Hyperlipidemia Continue home statin Discharge Planning blood culture sensitivity results will be available from [facility] tomorrow. Will likely need home health for IV antibiotics. = Pending ID clearance. May need PICC line. Pt Condition on Discharge: Good Discharge Disposition: Discharge Home Discharge Time: > 30 minutes Discharge Instructions DIET: Follow Instructions for: Diabetic Diet Activities you can perform: Regular-No Restrictions Follow up Referrals: PCP Follow-up - 2-3 Days He will need creatinine checked weekly while on Bactrim (sulfamethoxazole/trimethoprim) New Medications: Sulfamethoxazole-Trimethoprim (Sulfamethoxazole-Trimethoprim) 800-160 Mg Tab 1 TAB PO Q12HR for Infection, #24 TAB You will need to follow-up with primary care to have kidney function checked weekly while on this medication Continued Medications: Atorvastatin (Lipitor) 10 Mg Tab 10 MG PO HS for Cholesterol Management, #30 TAB 0 Refills Glimepiride (Amaryl) 4 Mg Tab 8 MG PO DAILY for Blood Sugar Management, #30 TAB 0 Refills Take with breakfast or first main meal Metformin (Metformin) 850 Mg Tab 850 MG PO DAILY for Blood Sugar Management, TAB 0 Refills With a meal Sitagliptin (Januvia) 100 Mg Tab 100 MG PO 1200 for Blood Sugar Management, #30 TAB 0 Refills [bp med] () 325 MG PO DAILY Dhaval Prince MD May 30, 2017 15:02
[2017-05-30] MEDS ORDERED: INSULIN DETEMIR 100 UNITS/ML VIAL SQ ONE (16:00)
[2017-05-30] MEDS ORDERED: SULFAMETHOXAZOLE-TRIMETHOPRIM DS 800-160 MG TAB PO ONE (16:00)
[2017-05-30] MEDS ORDERED: GLIMEPIRIDE 2 MG TAB PO ONE (16:00)
[2017-05-30] MEDS ORDERED: metFORMIN HCL 500 MG TAB PO ONE (16:00)
--- NOTE | 2017-05-30 16:34 | HHI.IDPN ---
Subjective Subjective Remarks Final blood clx from [facility] reviewed E coli R to cipro S bactrim feels much better no fever Our blood and urine clx all negative so far Unable to recall IV abx that cause reaction, dgtr @ b/s also cant recall Antibiotics zosyn Past Medical History DM sp L nephrectomy Allergies: Coded Allergies: No Known Allergies (Verified Allergy, Unknown, 05/28/17) Objective . Vital Signs Date Time Temp Pulse Resp B/P (MAP) Pulse Ox O2 Delivery O2 Flow Rate FiO2 05/30/17 11:38 98.0 78 18 134/65 (88) 100 05/30/17 08:17 98.2 74 18 154/67 (96) 98 05/30/17 04:08 98.5 76 17 159/70 (99) 99 05/30/17 00:00 99.0 83 17 149/63 (91) 100 05/29/17 20:30 97.7 82 17 160/59 (92) 100 05/30/17 05/30/17 05/31/17 15:00 23:00 07:00 Intake Total 460 ml Balance 460 ml Intake Oral 360 ml IV Total 100 ml # Voids 3 # Bowel Movements 2 . Laboratory Tests Test 05/29/17 04:39 White Blood Count 5.5 TH/MM3 Red Blood Count 3.26 MIL/MM3 Hemoglobin 9.6 GM/DL Hematocrit 28.3 % Mean Corpuscular Volume 86.9 FL Mean Corpuscular Hemoglobin 29.4 PG Mean Corpuscular Hemoglobin Concent 33.8 % Red Cell Distribution Width 13.8 % Platelet Count 175 TH/MM3 Mean Platelet Volume 9.0 FL Neutrophils (%) (Auto) 56.4 % Lymphocytes (%) (Auto) 27.6 % Monocytes (%) (Auto) 10.6 % Eosinophils (%) (Auto) 4.2 % Basophils (%) (Auto) 1.2 % Neutrophils # (Auto) 3.1 TH/MM3 Lymphocytes # (Auto) 1.5 TH/MM3 Monocytes # (Auto) 0.6 TH/MM3 Eosinophils # (Auto) 0.2 TH/MM3 Basophils # (Auto) 0.1 TH/MM3 CBC Comment DIFF FINAL Differential Comment Laboratory Tests Test 05/28/17 21:50 05/29/17 04:39 05/30/17 13:45 Lactic Acid Level 2.1 mmol/L Blood Urea Nitrogen 17 MG/DL Creatinine 1.08 MG/DL 1.03 MG/DL Random Glucose 172 MG/DL Calcium Level 8.0 MG/DL Sodium Level 140 MEQ/L Potassium Level 3.8 MEQ/L Chloride Level 107 MEQ/L Carbon Dioxide Level 26.0 MEQ/L Anion Gap 7 MEQ/L Estimat Glomerular Filtration Rate 49 ML/MIN 51 ML/MIN Hemoglobin A1c 8.6 % Microbiology Date/Time Source Procedure Growth Status 05/28/17 13:25 Blood Peripheral Aerobic Blood Culture - Preliminary NO GROWTH IN 2 DAYS Resulted 05/28/17 13:25 Blood Peripheral Anaerobic Blood Culture - Preliminary NO GROWTH IN 2 DAYS Resulted 05/28/17 13:15 Blood Peripheral Aerobic Blood Culture - Preliminary NO GROWTH IN 2 DAYS Resulted 05/28/17 13:15 Blood Peripheral Anaerobic Blood Culture - Preliminary NO GROWTH IN 2 DAYS Resulted 05/28/17 13:30 Nasal Washing Influenza Types A,B Antigen (DARREN) - Final NEGATIVE FOR FLU A AND B ANTIGEN.... Complete 05/28/17 14:15 Urine Clean Catch Urine Culture - Final NO GROWTH IN 48 HOURS. Complete Imaging Last Impressions Chest X-Ray 05/28/17 1304 Signed Impressions: Service Date/Time: Sunday, May 28, 2017 13:27 - CONCLUSION: 1. No evidence to suggest pneumonia. 2. Minimal atelectasis and/or scarring at the lung bases. Jaspreet Cooper MD Abdomen/Pelvis CT 05/28/17 0000 Signed Impressions: Service Date/Time: Sunday, May 28, 2017 16:13 - CONCLUSION: 1. No normal left kidney. This may have been surgically removed and should be correlated with prior history. 2. The right kidney is unremarkable. 3. The bowel gas pattern and gallbladder appear unremarkable. Jaspreet Cooper MD Physical Exam CONSTITUTIONAL/GENERAL: This is an adequately nourished patient, in no apparent distress. TUBES/LINES/DRAINS: SKIN: No jaundice, rashes, or lesions. Skin temperature appropriate. Not diaphoretic. RESPIRATORY/CHEST: Symmetric, unlabored respirations. GASTROINTESTINAL: Abdomen soft, non-tender, nondistended. No hepato-splenomegaly , or palpable masses. No guarding. Bowel sounds present. GENITOURINARY: Without palpable bladder distension. MUSCULOSKELETAL: Extremities without clubbing, cyanosis, or edema. NEUROLOGICAL: Awake and alert. Motor and sensory grossly within normal limits. Follows commands. Cognitively sharp. Moves all extremities. PSYCHIATRIC: No obvious anxiety/depression. no apparent hallucinations or other psychotic thought process. Assessment & Plan Remarks E.coli sepsis 2/2 pylonephritis in a single kidney - reports clinical improvement Reports local reaction to unspecified abx dc zosyn complete 14 days of abx with bactrim f/u creatinin as o/p biweekly while on bactrim dw Dr Suresh newell daughter @ b/s Gabriela Maddox MD May 30, 2017 16:34
[2017-05-31] MEDS ORDERED: SULFAMETHOXAZOLE-TRIMETHOPRIM DS 800-160 MG TAB PO SCH (09:00)
--- NOTE | 2017-06-09 15:35 | PQ ---
Physician Query Response Document PATIENT: BECKY JORDAN : 1935 ADMIT DATE: 05/28/2017 3:25 PM DISCH DATE: 05/30/2017 4:42 PM RESPONDING PROVIDER #: [email or web address] QUERY TEXT: Conflicting Documentation Clarification A single mention or documentation of multiple diagnoses for the same clinical presentation appears in the record. Please clarify the diagnosis/diagnoses: E. coli sepsis vs E. coli bacteremia. Please also document if the condition is: -- Confirmed and current -- Confirmed, treated and resolved -- Ruled out -- Other, please specify If you have any additional questions/comments and/or concerns, please do not hesitate to reach out to the [facility]/Coding Hotline, Ext. [phone]. The patient's Clinical Indicators include: Discharge Summary under Hospital Course lists diagnosis of Bacteremia (E. coli). Patient also with E . Coli UTI/pyelonephritis. At bottom of same paragraph - Discussed with infectious disease, who will come to evaluate Dr. Maddox's consult (ID) of 05/29/17 documents: Assessment and Plan : E.coli sepsis 2/2 pylonephritis in a single kidney ID Progress Note 05/30/17 at bottom of report: reece Prince. dw daughter @ b/s Query created by: Loyda Christian on 06/06/2017 10:12 AM RESPONSE TEXT: Please see my notes. E. Coli bacteremia, sepsis, pyelonephritis diagnosed at [facility]. repeat cultures here fortunately are negative. Susceptibilities from outside hospital returned. This was tr eated as per ID, and will be resolved after treatment Electronically signed by: Dhaval Prince MD 06/09/2017 3:23 PM
== END 2017-05-30 16:42 | disposition home or self-care (01) | DRG 872 ==
LOC: NEPE 12:07 → NEDA 15:25 → N05A 17:39
PROVIDERS: ADMIT Internal Medicine; ATTEND Internal Medicine
DX: A41.51 Sepsis due to Escherichia coli [E. coli] (principal); N17.9 Acute kidney failure, unspecified; N12 Tubulo-interstitial nephritis, not specified as acute or chronic; B96.20 Unspecified Escherichia coli [E. coli] as the cause of diseases classified elsewhere; Z16.23 Resistance to quinolones and fluoroquinolones; E11.65 Type 2 diabetes mellitus with hyperglycemia; Z79.4 Long term (current) use of insulin; I10 Essential (primary) hypertension; N28.9 Disorder of kidney and ureter, unspecified; Z85.528 Personal history of other malignant neoplasm of kidney; Z90.5 Acquired absence of kidney; E78.5 Hyperlipidemia, unspecified
CPT/HCPCS: 71045; 74177; 80048; 80053; 81001; 82565; 82948; 83036; 83605; 85025; 87040; 87086; 87804; 96361; 96365; J1644; J1815; J2543; J7030; Q9967